=== PATIENT | female | born 1965 | race American Indian/Alaskan Native ===

== ENCOUNTER 2017-07-08 04:48 | Emergency (ER) | payer OTHER ==
[~2017-07-08] VITALS: Ht 162.6 cm; Wt 61.2 kg
== END 2017-07-08 13:12 | disposition home or self-care (01) ==
LOC: ER 04:48
DX: K29.70 Gastritis, unspecified, without bleeding (principal)

== ENCOUNTER 2017-07-08 16:39 | Emergency (ER) | payer OTHER ==
[~2017-07-08] VITALS: Ht 152.4 cm; Wt 61.2 kg
== END 2017-07-09 17:31 | disposition home or self-care (01) ==
LOC: ER 16:39
DX: K29.70 Gastritis, unspecified, without bleeding (principal); E80.7 Disorder of bilirubin metabolism, unspecified; K56.7 Ileus, unspecified

== ENCOUNTER 2020-02-21 10:40 | Outpatient (CLI) | payer OTHER | END 2020-02-21 10:47 | disposition home or self-care (01) | LOC: MAMO-SONO 10:40 | DX: Z12.31 Encounter for screening mammogram for malignant neoplasm of breast (principal); N64.4 Mastodynia ==

== ENCOUNTER 2020-10-13 23:21 | Emergency (ER) | payer OTHER ==
[~2020-10-13] VITALS: Ht 165.1 cm; Wt 63.5 kg
[2020-10-13] MEDS ORDERED: PARA LA PRESION (23:29)
[2020-10-14] MEDS ORDERED: PROPRANOLO20 MG/5 ML (00:11)
== END 2020-10-14 03:28 | disposition home or self-care (01) ==
LOC: ER 23:21
DX: R10.13 Epigastric pain (principal)